=== PATIENT | female | born 1960 | race Caucasian/White ===

== ENCOUNTER 2018-10-28 09:39 | Outpatient (CLI) | payer OTHER ==
--- NOTE | 2018-10-30 09:15 | Mammography Report ---
Reason: ENCOUNTER FOR SCREENING MAMMOGRAM FOR MALIGNANT NE Procedure Date: 10/28/2018 Accession Number: [id number] / [id number] Procedure: CARLOS EDUARDO - Screening Mammo w/Luis CPT Code: FULL RESULT: EXAM: Screening Mammo w/Luis DATE: 10/28/2018 10:22 AM CLINICAL HISTORY: Routine screening. No reported personal history of breast cancer. Family history breast cancer in grandmother, age unknown. TECHNIQUE: (B) - Bilateral Bilateral CC and MLO views were obtained. COMPARISON: 01/21/2015 through 07/30/2010 FINDINGS: Bilateral breasts: There are multiple, similar appearing, round and oval benign-appearing masses showing a waning pattern, consistent with cysts. No suspicious masses, clustered microcalcifications, or regions of architectural distortion are identified. PARENCHYMAL PATTERN: (D) - The breasts demonstrate heterogeneously dense fibroglandular parenchyma bilaterally. IMPRESSION: Benign findings RECOMMENDATION: (ANNUAL) - Recommend routine annual screening mammography. BI-RADS CATEGORY: (2) - Benign Findings STANDARD QUALIFYING STATEMENTS: 1. This examination was not reviewed with the aid of Computer-Aided Detection (CAD). 2. A negative or benign imaging report should not preclude biopsy if clinically suspicious findings are present. 3. Dense breasts may obscure an underlying neoplasm. 4. This examination was reviewed with the aid of 3D breast imaging (tomosynthesis).
== END 2018-10-28 09:40 | disposition home or self-care (01) ==
LOC: DI 09:39
PROVIDERS: ATTEND Physician Assistant
DX: Z12.31 Encounter for screening mammogram for malignant neoplasm of breast (principal); Z80.3 Family history of malignant neoplasm of breast
CPT/HCPCS: 77063; 77067

== ENCOUNTER 2023-03-18 09:49 | Outpatient (CLI) | payer BC ==
--- NOTE | 2023-03-22 12:13 | Mammography Report ---
BILATERAL DIGITAL DIAGNOSTIC MAMMOGRAM 3D/2D WITH EXAGGERATED CC: 03/18/2023 CLINICAL: Diffuse occasional left breast pain. Due for bilateral exam. Comparison is made to exams dated: 10/28/2018 mammogram - [facility], 06/23/2016 ma mmogram - [facility], and 01/21/2015 mammogram - [facility]. Both breasts are almost entirely fatty (category a/<25% glandular tissue). No significant masses, calcifications, or other findings are seen in either breast. IMPRESSION: NEGATIVE There is no abnormality seen in the left breast to correspond with the area of clinical concern in th e lower outer quadrant, however, clinical correlation and clinical followup are recommended. There is no mammographic evidence of malignancy. Return to annual mammogram screening schedule is rec ommended. Based on the Tyrer Cuzick model (a risk assessment model) the patients lifetime risk is 10.3% and he r 10 year risk is 4.3%. According to the ACR, ACS, and NCCN guidelines, an annual breast MRI exam halley ng with mammogram is recommended if the patients lifetime risk is 20% or greater. This exam was interpreted at Station ID: [id number]. NOTE: For mammograms, a report in lay terms will be sent to the patient. Approximately 15% of breast malignancies will not be visualized mammographically. In the management of a palpable breast mass, a negative mammogram must not discourage biopsy of a clinically suspicious lesion. Electronically Signed By: Emory Pereira M.D. lc/:03/18/2023 10:47:44 letter sent: No_Letter ACR BI-RADS Category 1: Negative 3341F PARENCHYMAL PATTERN: (F) - The breast(s) demonstrate(s) diffuse fatty replacement. BI-RADS CATEGORY: (1) - 1 RECOMMENDATION: (ANNUAL) - Recommend routine annual screening mammography. [id number] return to screening LATERALITY: (B)
== END 2023-03-18 09:50 | disposition home or self-care (01) ==
LOC: DI 09:49
PROVIDERS: ATTEND Registered Nurse
DX: N64.4 Mastodynia (principal)

== ENCOUNTER 2023-04-16 08:00 | Outpatient (CLI) | payer BC ==
[2023-04-16 18:17] LABS: BILIRUBIN,URINE NEGATIVE (NEGATIVE); GLUCOSE, URINE (UA) NEGATIVE (NEGATIVE); KETONES,URINE (UA) NEGATIVE (NEGATIVE); LEUKOCYTE ESTERASE, URINE NEGATIVE (NEGATIVE); NITRITE,URINE NEGATIVE (NEGATIVE); OCCULT BLOOD,URINE TRACE-INTA (NEGATIVE); PROTEIN,URINE NEGATIVE (NEGATIVE); UROBILINOGEN,URINE 0.2 (NORMAL) E.U./dL (NORMAL)
[2023-04-16 18:24] LABS: CLARITY,URINE CLEAR (CLEAR)
[2023-04-16 18:35] LABS: RBC,URINE 0-5 /HPF (0-5); WBC,URINE 0-3 /HPF (0-5)
[2023-04-16 18:36] LABS: BACTERIA,URINE None Seen /HPF (None Seen); SQUAMOUS EPITHELIAL CELL,UR NONE SEEN (<= Few)
== END 2023-04-16 23:59 | disposition home or self-care (01) ==
LOC: LAB.S 08:00
PROVIDERS: ATTEND Emergency Medicine
DX: R10.32 Left lower quadrant pain (principal)
CPT/HCPCS: 81001; 87086

== ENCOUNTER 2023-04-18 09:59 | Outpatient (CLI) | payer BC ==
[2023-04-18 14:51] LABS: BASOPHILS # (AUTO) 0.1 10^3/uL (0.0-0.1); EOSINOPHILS # (AUTO) 0.1 10^3/uL (0.0-0.7); EOSINOPHILS % (AUTO) 1.8 %; HCT - HEMATOCRIT 42.9 % (37.0-47.0); LYMPHOCYTES # (AUTO) 1.2 10^3/uL (1.5-3.5); LYMPHOCYTES % (AUTO) 25.1 %; MEAN CORPUSCULAR HEMOGLOBIN 28.7 pg (27.0-31.0); MEAN CORPUSCULAR HGB CONC 32.6 g/dL (32.0-36.0); MEAN CORPUSCULAR VOLUME 87.9 fL (81.0-99.0); MONOCYTES # (AUTO) 0.4 10^3/uL (0.0-1.0); MONOCYTES % (AUTO) 8.6 %; NEUTROPHILS # (AUTO) 3.1 10^3/uL (1.5-6.6); NEUTROPHILS % (AUTO) 63.3 %; PLT - PLATELET COUNT 231 10^3/uL (130-450); RED BLOOD COUNT 4.88 10^6/uL (4.20-5.40); RED CELL DISTRIBUTION WIDTH 12.8 % (12.0-15.0); WHITE BLOOD COUNT 4.9 x10^3/uL (4.8-10.8)
[2023-04-18 15:41] LABS: ALBUMIN 4.6 g/dL (3.2-5.5); ALBUMIN/GLOBULIN RATIO 1.6 (1.0-2.2); BILIRUBIN,TOTAL 0.7 mg/dL (0.2-1.0); CALCIUM 9.8 mg/dL (8.5-10.3); CREATININE 0.9 mg/dL (0.6-1.3); POTASSIUM 4.2 mmol/L (3.5-4.5); TOTAL PROTEIN 7.5 g/dL (6.4-8.9)
== END 2023-04-18 10:00 | disposition home or self-care (01) ==
LOC: LAB.S 09:59
PROVIDERS: ATTEND Emergency Medicine
DX: R10.32 Left lower quadrant pain (principal)
CPT/HCPCS: 36415; 80053; 83690; 85025

== ENCOUNTER 2023-04-28 18:29 | Outpatient (CLI) | payer BC ==
--- NOTE | 2023-04-29 10:58 | Ultrasound Report ---
PROCEDURE: Pelvic w/Transvaginal INDICATIONS: LEFT LOWER QUADRANT PAIN TECHNIQUE: Real-time scanning was performed of the pelvic organs, with image documentation. Additional endovagi nal scanning was necessary due to incomplete visualization of the adnexal and endometrial structures by transabdominal scanning. COMPARISON: None. FINDINGS: Uterus: Uterus is anteverted and normal in size at 5.6 x 2 0.5-3.5 cm. The myometrium is heterogene ous. The endometrium measures 2.3 mm in combined thickness. No fibroids Ovaries: The right ovary measures 1.0 x 0.5 x 1.0 cm, with a calculated ovarian volume of 0.26 cc. The left ovary measures 2.0 x 1.5 x 2.1 cm, with a calculated ovarian volume of 3.3 cc. The ovaries have a normal sonographic appearance. There is a 1 cm left ovarian cyst. Other: No pathologic free abdominal or pelvic fluid. IMPRESSION: Unremarkable pelvic ultrasound. Reviewed by: Duane Martinez MD on 04/29/2023 10:57 AM PDT Approved by: Duane Martinez MD on 04/29/2023 10:57 AM PDT Station ID: [id number]
== END 2023-04-28 18:30 | disposition home or self-care (01) ==
LOC: DI 18:29
PROVIDERS: ATTEND Emergency Medicine
DX: R10.32 Left lower quadrant pain (principal)

== ENCOUNTER 2023-05-16 12:24 | Outpatient (CLI) | payer BC ==
[2023-05-16] MEDS ORDERED: iohexoL-300 100 ML VIAL IVP ONE (16:48)
[2023-05-16] MEDS ORDERED: BARIUM SULFATE 450 ML BOTTLE PO ONE (16:48)
--- NOTE | 2023-05-16 16:52 | CT Report ---
PROCEDURE: ABDOMEN/PELVIS W INDICATIONS: LEFT LOWER QUADRANT PAIN CONTRAST: 100ml omni 300 TECHNIQUE: After the administration of IV and oral contrast, 5 mm thick sections acquired from the diaphragms to the symphysis. 5 mm thick coronal and sagittal reformats were acquired. For radiation dose reducti on, the following was used: automated exposure control, adjustment of mA and/or kV according to woo ent size. COMPARISON: CT of the abdomen dated 06/24/2013 FINDINGS: Image quality: Excellent. Lung bases and heart: Unremarkable. Liver: No solid mass. Low-density hepatic cysts are present. Gallbladder and biliary tree: Not visualized and likely surgically absent. No intrahepatic biliary du ctal dilatation. Spleen: No splenomegaly. Pancreas: No pancreatic ductal dilation. Adrenals: No adrenal nodule. Kidneys and ureters: No hydronephrosis. No renal cystic lesion which requires follow up. No solid mas s. Bowel and peritoneum: No bowel distension. The appendix is thin-walled. No pathologic free fluid. Lymph nodes: There are multiple enlarged mesenteric lymph nodes throughout the mesenteric root. No re troperitoneal adenopathy. Vessels: No infrarenal aortic aneurysm. PELVIS Reproductive organs: Unremarkable. Bladder: No abnormal wall thickening, accounting for underdistension. Pelvic lymph nodes: No pelvic adenopathy by size criteria. Bones: No aggressive osseous abnormality. Other: No significant ventral or inguinal hernia. IMPRESSION: 1. Multiple enlarged mesenteric lymph nodes. These are new when compared with the prior CT from 2012. No more recent comparisons are available. Differential considerations include infectious, inflammato ry, and neoplastic etiologies. Findings raise the suspicion for a hematologic neoplasm. Reviewed by: Tina Reyes MD on 05/16/2023 4:51 PM PDT Approved by: Tina Reyes MD on 05/16/2023 4:51 PM PDT Station ID: [id number]
== END 2023-05-16 12:25 | disposition home or self-care (01) ==
LOC: DI 12:24
PROVIDERS: ATTEND Emergency Medicine
DX: R59.0 Localized enlarged lymph nodes (principal); R10.32 Left lower quadrant pain
CPT/HCPCS: 74177; A9270; Q9967

== ENCOUNTER 2023-05-31 11:14 | Outpatient (CLI) | payer BC | END 2023-05-31 11:15 | disposition home or self-care (01) | LOC: LAB.S 11:14 | PROVIDERS: ATTEND Naturopath | DX: I88.0 Nonspecific mesenteric lymphadenitis (principal) | CPT/HCPCS: 36415 ==